=== PATIENT | female | born 1990 | race African-American/Black ===

== ENCOUNTER 2016-06-10 23:59 | Emergency (ER) | payer MEDICAID ==
[~2016-06-10] VITALS: Ht 157.5 cm; Wt 86.0 kg
[~2016-06-10 23:59] MED LIST: FERR-63 PO; PREN1TAB49 PO
[2016-06-11 08:17] LABS: GLUCOSE URINE NEGATIVE (NEGATIVE); KETONES URINE NEGATIVE (NEGATIVE); LEUKOCYTE ESTERASE URINE 3+ (NEGATIVE); NITRITE URINE NEGATIVE (NEGATIVE); OCCULT BLOOD URINE NEGATIVE (NEGATIVE); PH URINE 6.5 (4.5-8.0); PROTEIN URINE NEGATIVE (NEGATIVE); SPECIFIC GRAVITY URINE 1.017 (1.005-1.030)
[2016-06-11 08:19] LABS: CLARITY URINE CLOUDY (CLEAR); COLOR URINE YELLOW (YELLOW)
[2016-06-11 08:36] LABS: BACTERIA URINE 1+; RBC URINE NONE SEEN /hpf (0-2); SQUAMOUS EPITHELIAL CELL URINE 1+ /lpf (RARE/1+)
[2016-06-11 08:38] LABS: TRICHOMONAS URINE FEW
[2016-06-11] MEDS ORDERED: METRONIDAZOLE 500MG TABLET PO SCH (09:00)
[2016-06-11 09:22] VITALS: BP 105/61
== END 2016-06-11 09:24 | disposition home or self-care (01) ==
LOC: ER 23:59
DX: B37.3 Candidiasis of vulva and vagina (principal); N39.0 Urinary tract infection, site not specified; A59.9 Trichomoniasis, unspecified; F17.200 Nicotine dependence, unspecified, uncomplicated; N89.8 Other specified noninflammatory disorders of vagina; R10.2 Pelvic and perineal pain
CPT/HCPCS: 81001; 81025; 82962; 99283; Z7610

== ENCOUNTER 2017-02-14 20:52 | Emergency (ER) | payer MEDICAID ==
[~2017-02-14] VITALS: Ht 160 cm; Wt 86.0 kg
[2017-02-14 21:48] VITALS: BP 119/94
== END 2017-02-15 07:58 | disposition left against medical advice (07) ==
LOC: ER 20:52
DX: J02.9 Acute pharyngitis, unspecified (principal); Z53.21 Procedure and treatment not carried out due to patient leaving prior to being seen by health care provider

== ENCOUNTER 2018-12-24 16:20 | Observation (INO) | payer MEDICAID | END 2018-12-24 16:45 | disposition left against medical advice (07) | LOC: 8 EST LDRP 16:20 | PROVIDERS: ADMIT Obstetrics & Gynecology; ATTEND Obstetrics & Gynecology | DX: O62.9 Abnormality of forces of labor, unspecified (principal); Z3A.38 38 weeks gestation of pregnancy | CPT/HCPCS: G0378 ==

== ENCOUNTER 2018-12-25 13:41 | Observation (INO) | payer MEDICAID ==
[~2018-12-25] VITALS: Ht 160 cm; Wt 102.1 kg
== END 2018-12-25 16:00 | disposition home or self-care (01) ==
LOC: 8 EST A/PP 13:41
PROVIDERS: ADMIT Obstetrics & Gynecology; ATTEND Obstetrics & Gynecology
DX: O26.893 Other specified pregnancy related conditions, third trimester (principal); R10.2 Pelvic and perineal pain; O62.9 Abnormality of forces of labor, unspecified; Z3A.39 39 weeks gestation of pregnancy
CPT/HCPCS: 99281; G0378

== ENCOUNTER 2018-12-30 19:20 | Observation (INO) | payer MEDICAID ==
[~2018-12-30] VITALS: Ht 160 cm; Wt 61.2 kg
[2018-12-30] MEDS ORDERED: LACTATED RINGERS 1,000 ML IV SCH (20:44)
[2018-12-30] MEDS ORDERED: LACTATED RINGERS 1,000 ML IV ONE (20:44)
[2018-12-30] MEDS ORDERED: ACETAMINOPHEN 325MG TABLET PO ONE (20:45)
== END 2018-12-30 21:45 | disposition home or self-care (01) ==
LOC: 8 EST A/PP 19:20
PROVIDERS: ADMIT Obstetrics & Gynecology; ATTEND Obstetrics & Gynecology
DX: O26.893 Other specified pregnancy related conditions, third trimester (principal); R10.2 Pelvic and perineal pain; O62.9 Abnormality of forces of labor, unspecified; Z3A.40 40 weeks gestation of pregnancy
CPT/HCPCS: 99281; G0378